=== PATIENT | female | born 1985 | race Caucasian/White ===

== ENCOUNTER 2022-09-06 11:13 | Emergency (ER) | payer MEDICAID, SELFPAY ==
--- NOTE | ~2022-09-06 | CT_ITS ---
EXAMINATION: CT HEAD WITHOUT CONTRAST (STROKE PROTOCOL) CLINICAL INFORMATION: Stroke protocol. 36-year-old with sudden right hemiplegia. COMPARISON: None TECHNIQUE: Contiguous axial imaging was performed from the skull base to vertex without intravenous administration of contrast. Axial images provided. This CT examination was performed using dose optimization techniques as appropriate, variously including the following: *Automated exposure control *Adjustment of mA and/or kV according to patient size (this includes techniques or standardized protocols for targeted exams where dose is matched to indication/reason for exam; i.e. extremities or head) *Use of iterative reconstruction technique DLP: 595 mGy-cm FINDINGS: There is no intracranial hemorrhage, hematoma, or extra-axial fluid collection. The ventricles are normal in size. There is no hydrocephalus, edema, or mass effect. The georges-white matter differentiation appears well preserved . No focal dense vessel sign appreciated. There is no visible acute territorial infarct or mass lesion. The calvarium appears intact. There is no pneumocephalus or orbital emphysema. The visualized sinuses and middle ears and mastoid air cells show no significant mucosal thickening. There are no air-fluid levels. CTA head and neck exam pending for further assessment. Results called to Dr. Mounika García in the emergency department at [address]/CT head for stroke IMPRESSION: -No acute intracranial abnormality demonstrated. -See CTA head and neck exam for further assessment, separate report.
--- NOTE | ~2022-09-06 | CT_ITS ---
EXAMINATION: CT ANGIOGRAM NECK WITH CONTRAST CT ANGIOGRAM BRAIN WITH CONTRAST CLINICAL INFORMATION: Stroke alert. COMPARISON: None. TECHNIQUE: Test bolus sequences followed by intravenous administration 100 mL of Omnipaque 350. Helical imaging was performed in the axial plane from the thoracic inlet to the skull vertex. Delayed postcontrast imaging of the head was also performed. The data was processed at the staff nuclear medicine technologist workstation for generation of MIP sequences. Angled MIPs and volume rendered reformatted images were also generated at an offline 3D workstation. Stenoses are assessed in accordance with NASCET criteria unless otherwise indicated. This CT examination was performed using dose optimization techniques as appropriate, variously including the following: *Automated exposure control *Adjustment of mA and/or kV according to patient size (this includes techniques or standardized protocols for targeted exams where dose is matched to indication/reason for exam; i.e. extremities or head) *Use of iterative reconstruction technique DLP: 1392 mGy-cm FINDINGS: Head CT: There is no intracranial hemorrhage, large acute infarction, or mass lesion. The ventricles are normal in size and configuration without evidence of hydrocephalus. No abnormal enhancement is seen. The dural venous sinuses are normally opacified. The visualized paranasal sinuses and mastoid air cells are clear. Head and neck CTA: The aortic arch and great vessel origins are patent. There is aberrant origin of the right subclavian artery which demonstrates a retroesophageal course. The aortic arch and great vessel origins are patent. The bilateral common carotid arteries are patent. No stenosis is seen at the carotid bifurcations. The left vertebral artery is normal in course and caliber. The V3 segment of the right vertebral artery demonstrates luminal irregularity with surrounding soft tissue attenuation compatible with dissection as demonstrated on series 6 image [id number]. The intradural segment of the right vertebral artery demonstrates poor opacification with diminutive caliber with only minimal contrast seen at the vertebrobasilar junction. The right-sided posterior inferior cerebellar artery is poorly opacified. The intradural left vertebral artery is normal in course and caliber and appears to predominantly supply the basilar artery. The printmaker are patent. The intracranial ICAs are patent. The ACAs and MCAs are patent with symmetric collaterals. No aneurysm is seen. Non-vascular findings: The cervical soft tissues are within normal limits. No consolidation is seen within the lungs. Degenerative changes are seen within the spine. CT/CT angio head neck stroke IMPRESSION: CT HEAD: No intracranial hemorrhage or large acute infarction. 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 The intradural right vertebral artery demonstrates poor opacification with diminutive caliber with only minimal contrast seen at the vertebrobasilar junction concerning with intradural extension. The left vertebral artery is patent including the intradural segment and supplies the basilar artery. Basilar artery appears patent. 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 This critical result was discussed with Dr. García on 09/06/2022 11:59 AM, and it was ascertained that the content and urgency of the report was understood at the time of direct communication.
--- NOTE | 2022-09-06 11:17 | ECG_ITS ---
Test Reason : STROKE Blood Pressure : / mmHG Vent. Rate : 089 BPM Atrial Rate : 088 BPM P-R Int : 140 ms QRS Dur : 084 ms QT Int : 378 ms P-R-T Axes : 070 071 058 degrees QTc Int : 459 ms Undetermined rhythm Otherwise normal ECG No previous ECGs available Referred By: Kelly Sanches Electronically Signed By:
[2022-09-06 11:25] VITALS: BP 114/86; PULSE 100; O2SAT 100
[2022-09-06 11:25] LABS: Glucose, Whole Blood 206 mg/dL (60-115)
[2022-09-06 11:26] VITALS: BMI 25.8
[2022-09-06 11:31] LABS: Prothrombin Time Whole Bld POC 12.6 sec (11.1-13.5); ~PT, ~INR - Anti Coag Clinic 1.1 (0.9-1.1)
--- NOTE | 2022-09-06 11:32 | ED_ITS ---
HPI - Neuro Symptoms/Deficit General Chief Complaint: Neuro Symptoms/Deficit Stated Complaint: STROKE ALERT,R WEAK,SLURRED,DROOP,BHAGAT,NUMB,LKWT UNK Source: patient Mode of arrival: EMS Limitations: altered mental status History of Present Illness HPI Narrative: 36 yo female with hx of ADHD not on blood thinners per EMS - they note they were called by an employer who saw the patient and called 911 stated the patient seemed off and speech was slurred. Patient was found down on the ground by EMS. Patient cannot give a reliable time of onset but noted that sometime this AM she started to feel off. When asked onset she jsut shakes her head yes or no and thinks sometime around 7 or 730 she started to have numbness in her arms and a headache. She cannot actually say the time due to dysarthria Onset (ago): unknown (sometime this AM but we cannot confirm the time) Timing confirmed by: other (employer via phone) Location: speech, right face, right arm, right leg and altered History of same: No Severity: severe Quality: weak Relieving factors: none Exacerbating factors: none Context: other (was on ground with EMS, started gradually we believe) On Anticoagulants: No Associated symptoms: headaches and nausea/vomiting Treatments Prior to Arrival: none Related Data Home Medications Medication Instructions Recorded Confirmed dextroamphetamine-amphetamine 15 15 mg PO BID 09/06/22 09/06/22 mg tablet (Adderall) Allergies Allergy/AdvReac Type Severity Reaction Status Date / Time No Known Allergies Allergy Verified 09/06/22 11:55 Review of Systems Review of Systems: ROS unable to be obtained due to altered mental status and patient's speech deficits [facility] Past Medical History Medical History ADHD Social History Social History (Updated 09/06/22 @ 11:47 by Stacia García DO) Alcohol intake: never Patient Tobacco Use Status: Never used Tobacco Use of substances other than those prescribed or required for medical reasons: Yes Substance Use Type: Marijuana Substance Use Frequency: Occasionally Last Used Substance: Weeks (ago) Any prior treatment program specific to substance use: No Advance Directives: No Advance Directives Information Provided: No Patient : No Physical Exam Vital Signs: Vital Signs: Last Vital Signs Pulse 72 09/06/22 12:00 Resp 20 09/06/22 12:00 BP 123/74 09/06/22 12:00 Pulse Ox 99 09/06/22 12:00 O2 Del Method 09/06/22 12:00 BMI result Body Mass Index 25.8 Appearance: Alert. Confused but answers to her name and attempts to answer questions but aphasic and dysarthric Moderate acute distress, vomited on arrival and cleared emesis into bag on her own Eyes: Pupils equal, round and reactive to light. ENT: Pharynx normal. Neck: Normal inspection. Neck supple. CVS: Normal heart rate and rhythm. Pulses normal. Respiratory: No respiratory distress. Breath sounds normal. Abdomen: Soft and nontender. Skin: Skin warm and dry. Normal skin color. Normal skin turgor. Extremities: No lower extremity edema. No calf ttp Neuro: Confused. Dense R sided hemiparesis, fixed gaze to the right, facial paralysis lower right, seems to neglect left side, dysarthria and aphasia. . Course Course Course Narrative: CT head: CT head plain negative no ICH 1134am CTA: pending results Dr. Lieberman recommends given symptoms to transfer to [facility] send to ED Dr. Arias needs perfusion scan 1139am accepting provider ED doctor - Dr. Mcnally accepted patient to the ED. EMS was called for transfer at this time by ammunition and explosives handler dense R vert artery dissection ? 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 The intradural right vertebral artery demonstrates poor opacification with diminutive caliber with only minimal contrast seen at the vertebrobasilar junction concerning with intradural extension. The left vertebral artery is patent including the intradural segment and supplies the basilar artery. Basilar artery appears patent. 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 MDM - Neuro Symptoms/Deficit MDM Narrative Medical decision making narrative: 36 yo female with dense R sided hemiparesis and dysarthria/aphasia without a reliable window for tPa - given NIH score and symptoms concern for LVO - she is not a candidate for tPa as I cannot confirm timing with her. She is more suitable for tertiary center with neurointerventionalist. Will consult [facility]. Transfer initiated. She is protecting her airway. Lab Data Result diagrams: 09/06/22 11:36 09/06/22 11:36 Labs: Lab Results 09/06/22 09/06/22 09/06/22 Range/Units 11:21 11:22 11:36 WBC 19.5 H (4.8-10.8) X10*3/uL RBC 3.93 L (4.20-5.50) X10*6/uL Hgb 12.6 (12.0-16.0) g/dl Hct 37.1 (37.0-47.0) % MCV 94.4 (80.0-98.0) fL MCH 32.1 (27.0-33.0) pg MCHC 34.0 (31.0-35.0) g/dl RDW 11.8 (11.0-16.0) % Plt Count 323 (160-400) X10*3/uL MPV 10.5 (9.4-12.3) fL Immature Gran % (Auto) 0.6 H (0.0-0.4) % Neut % (Auto) 87.7 H (45-73) % Lymph % (Auto) 7.8 L (20-40) % [place] % (Auto) 3.3 (2-11) % Eos % (Auto) 0.2 (0-4) % Baso % (Auto) 0.4 (0-2) % Lymph # (Auto) 1.5 (1.2-4.9) X10*3/uL [place] # (Auto) 0.6 (0.1-1.2) X10*3/uL Eos # (Auto) 0.0 (0.0-0.4) X10*3/uL Baso # (Auto) 0.1 (0.0-0.2) X10*3/uL Abs Immat Gran (auto) 0.12 H (0.00-0.03) X10*3/uL Absolute Neuts (auto) 17.1 H (2.0-8.3) x10*3/uL Absolute Nucleated RBC 0.000 (0.0-0.012) X10*3/uL Nucleated RBC % (auto) 0.0 (0.0-0.2) /100WBC PT (10.0-13.1) SEC Whole Blood PT 12.6 (11.1-13.5) sec INR (0.9-1.1) Whole Blood INR 1.1 (0.9-1.1) APTT (26.0-36.4) SEC Sodium (135-145) mmol/L Potassium (3.3-5.1) mmol/L Chloride (96-108) mmol/L Carbon Dioxide (22-29) mmol/L Anion Gap (12-20) BUN (9-16) mg/dL Creatinine (0.5-1.4) mg/dL Estim Creat Clear Calc Estimated GFR POC Glucose 206 H (60-115) mg/dL Random Glucose (60-115) mg/dL Calcium (8.4-10.2) mg/dL Magnesium (1.6-2.6) mg/dL Total Bilirubin (0.0-1.0) mg/dL AST (5-31) U/L ALT (0-31) U/L Alkaline Phosphatase (39-117) U/L Total Creatine Kinase (26-140) U/L Troponin I High Sens (<3.5-17.0) ng/L Total Protein (6.5-8.0) g/dL Albumin (3.5-5.0) g/dL COVID-19 (PAPA) (Negative) COVID-19 Clin Com 09/06/22 09/06/22 09/06/22 Range/Units 11:36 11:36 11:36 WBC (4.8-10.8) X10*3/uL RBC (4.20-5.50) X10*6/uL Hgb (12.0-16.0) g/dl Hct (37.0-47.0) % MCV (80.0-98.0) fL MCH (27.0-33.0) pg MCHC (31.0-35.0) g/dl RDW (11.0-16.0) % Plt Count (160-400) X10*3/uL MPV (9.4-12.3) fL Immature Gran % (Auto) (0.0-0.4) % Neut % (Auto) (45-73) % Lymph % (Auto) (20-40) % [place] % (Auto) (2-11) % Eos % (Auto) (0-4) % Baso % (Auto) (0-2) % Lymph # (Auto) (1.2-4.9) X10*3/uL [place] # (Auto) (0.1-1.2) X10*3/uL Eos # (Auto) (0.0-0.4) X10*3/uL Baso # (Auto) (0.0-0.2) X10*3/uL Abs Immat Gran (auto) (0.00-0.03) X10*3/uL Absolute Neuts (auto) (2.0-8.3) x10*3/uL Absolute Nucleated RBC (0.0-0.012) X10*3/uL Nucleated RBC % (auto) (0.0-0.2) /100WBC PT 14.0 H (10.0-13.1) SEC Whole Blood PT (11.1-13.5) sec INR 1.2 H (0.9-1.1) Whole Blood INR (0.9-1.1) APTT 24.1 L (26.0-36.4) SEC Sodium 137 (135-145) mmol/L Potassium 5.0 (3.3-5.1) mmol/L Chloride 107 (96-108) mmol/L Carbon Dioxide 15 L (22-29) mmol/L Anion Gap 20 (12-20) BUN 14 (9-16) mg/dL Creatinine 0.74 (0.5-1.4) mg/dL Estim Creat Clear Calc 105.1 Estimated GFR > 60 POC Glucose (60-115) mg/dL Random Glucose 206 H (60-115) mg/dL Calcium 8.6 (8.4-10.2) mg/dL Magnesium 1.8 (1.6-2.6) mg/dL Total Bilirubin 0.6 (0.0-1.0) mg/dL AST 15 (5-31) U/L ALT 13 (0-31) U/L Alkaline Phosphatase 74 (39-117) U/L Total Creatine Kinase 92 (26-140) U/L Troponin I High Sens < 3.5 (<3.5-17.0) ng/L Total Protein 5.8 L (6.5-8.0) g/dL Albumin 3.6 (3.5-5.0) g/dL COVID-19 (PAPA) (Negative) COVID-19 Clin Com 09/06/22 Range/Units 11:36 WBC (4.8-10.8) X10*3/uL RBC (4.20-5.50) X10*6/uL Hgb (12.0-16.0) g/dl Hct (37.0-47.0) % MCV (80.0-98.0) fL MCH (27.0-33.0) pg MCHC (31.0-35.0) g/dl RDW (11.0-16.0) % Plt Count (160-400) X10*3/uL MPV (9.4-12.3) fL Immature Gran % (Auto) (0.0-0.4) % Neut % (Auto) (45-73) % Lymph % (Auto) (20-40) % [place] % (Auto) (2-11) % Eos % (Auto) (0-4) % Baso % (Auto) (0-2) % Lymph # (Auto) (1.2-4.9) X10*3/uL [place] # (Auto) (0.1-1.2) X10*3/uL Eos # (Auto) (0.0-0.4) X10*3/uL Baso # (Auto) (0.0-0.2) X10*3/uL Abs Immat Gran (auto) (0.00-0.03) X10*3/uL Absolute Neuts (auto) (2.0-8.3) x10*3/uL Absolute Nucleated RBC (0.0-0.012) X10*3/uL Nucleated RBC % (auto) (0.0-0.2) /100WBC PT (10.0-13.1) SEC Whole Blood PT (11.1-13.5) sec INR (0.9-1.1) Whole Blood INR (0.9-1.1) APTT (26.0-36.4) SEC Sodium (135-145) mmol/L Potassium (3.3-5.1) mmol/L Chloride (96-108) mmol/L Carbon Dioxide (22-29) mmol/L Anion Gap (12-20) BUN (9-16) mg/dL Creatinine (0.5-1.4) mg/dL Estim Creat Clear Calc Estimated GFR POC Glucose (60-115) mg/dL Random Glucose (60-115) mg/dL Calcium (8.4-10.2) mg/dL Magnesium (1.6-2.6) mg/dL Total Bilirubin (0.0-1.0) mg/dL AST (5-31) U/L ALT (0-31) U/L Alkaline Phosphatase (39-117) U/L Total Creatine Kinase (26-140) U/L Troponin I High Sens (<3.5-17.0) ng/L Total Protein (6.5-8.0) g/dL Albumin (3.5-5.0) g/dL COVID-19 (PAPA) Negative (Negative) COVID-19 Clin Com See Note ECG Data Attestation: I personally reviewed and interpreted this ECG as follows: ECG interpretation date: 09/06/22 ECG interpretation time: 11:52 Interpretation: Rate: 89 Rhythm: NSR [place]: normal Normal P waves. Normal AXEL. Normal QRS complex. ST T wave : normal no ELOISE qTC: normal prior studies: no acute ischemi, artifact noted The study has been interpreted contemporaneously by me. . NIH Stroke Scale Internal: Initial- Upon Arrival Level of Consciousness: Alert Level of Consciousness Questions: Answers one question correctly Level of Consciousness Commands: Performs one task correctly Best Gaze: Partial gaze palsy Visual: No visual loss Facial Palsy: Minor paralyis Motor Arm (Right): No movement Motor Arm (Left): No drift Motor Leg (Right): No movement Motor Leg (Left): No drift Limb Ataxia: Absent Sensory: Normal Best Language: Mild to moderate aphasia Dysarthia: Mild to moderate dysarthria Extinction and Inattention: Visual, tactile, auditory, spatial, or personal inattention Score: 15 Critical Care Time Critical Care Time Critical Care Time: Yes Total Critical Care Time: 35 Attestation: medical consult, transfer to tertiary center I attest to this time spent taking care of the patient Discharge Plan Discharge Clinical Impression: Hemiparesis of right dominant side, Dysarthria, Dissection of vertebral artery Patient Disposition: [facility] Transfer Details: [facility] Prescriptions: No Action dextroamphetamine-amphetamine [Adderall] 15 mg Tablet 15 mg PO BID Rx Instructions: administer doses at least 4-6 hours apart Interventions: Acute Care Transfer Worksheet (ED) Last Done: 09/06/22 12:18 Discharge Date/Time: 09/06/22 12:22
--- NOTE | 2022-09-06 11:32 | PC.NURSE ---
@11:30AM CALL PLACED TO PT TX LINE @ [facility] @ ERIK RIVERA RN ENVIRONMENTAL TEST TECHNICIAN JEREMIE ANSWERS, TAKES PT IN AND THEN SPEAKS WITH ERIK RIVERA RN/ENVIRONMENTAL TEST TECHNICIAN
--- NOTE | 2022-09-06 11:37 | PC.NURSE ---
@ 11:37AM CALL RECEIVED FROM [facility] PT TX LINE JEREMIE ASKING TO SPEAK WITH DR LITTLEJOHN ON THIS PT WITH NEURO/VASC ON THE LINE DR LITTLEJOHN TAKES OVER THIS CALL RIGHT AWAY
[2022-09-06 11:41] LABS: MANUAL DIFF FLAG NO
[2022-09-06 11:43] LABS: Basophils Absolute Auto 0.1 X10*3/uL (0.0-0.2); Basophils Percent Auto 0.4 % (0-2); Eosinophils Percent Auto 0.2 % (0-4); Hematocrit 37.1 % (37.0-47.0); Hemoglobin 12.6 g/dl (12.0-16.0); Imm Gran Abs Auto 0.12 X10*3/uL (0.00-0.03); Imm Gran Pct Auto 0.6 % (0.0-0.4); Lymphocytes Absolute Auto 1.5 X10*3/uL (1.2-4.9); Lymphocytes Percent Auto 7.8 % (20-40); Mean Corpuscular Hemoglobin 32.1 pg (27.0-33.0); Mean Corpuscular Volume 94.4 fL (80.0-98.0); Mean Platelet Volume 10.5 fL (9.4-12.3); Monocytes Absolute Auto 0.6 X10*3/uL (0.1-1.2); Monocytes Percent Auto 3.3 % (2-11); Neutrophils Absolute Auto 17.1 x10*3/uL (2.0-8.3); Neutrophils Percent Auto 87.7 % (45-73); Platelet Count 323 X10*3/uL (160-400); Red Blood Count 3.93 X10*6/uL (4.20-5.50); Red Cell Distribution Width 11.8 % (11.0-16.0); White Blood Count 19.5 X10*3/uL (4.8-10.8)
[2022-09-06] MEDS: iohexoL 350 MG/ML 100 ML INFUS..BTL IV (11:44)
[2022-09-06 11:46] VITALS: BP 125/76; PULSE 82; RESP 16; O2SAT 100
[2022-09-06 11:55] LABS: INTERNATIONAL NORM RATIO 1.2 (0.9-1.1)
[2022-09-06 11:58] LABS: Partial Thromboplastin Time 24.1 SEC (26.0-36.4)
[2022-09-06 11:59] LABS: Alanine Aminotransferase 13 U/L (0-31); Albumin Level 3.6 g/dL (3.5-5.0); Alkaline Phosphatase 74 U/L (39-117); Anion Gap 20 (12-20); Aspartate Amino Transferase 15 U/L (5-31); Bilirubin Total 0.6 mg/dL (0.0-1.0); Blood Urea Nitrogen 14 mg/dL (9-16); COVID-19 Test Negative (Negative); Calcium 8.6 mg/dL (8.4-10.2); Carbon Dioxide 15 mmol/L (22-29); Chloride 107 mmol/L (96-108); Creatinine Clr Calc Pharmacy 105.1; Estimated Glomerular Filt Rate > 60; Glucose Random 206 mg/dL (60-115); Magnesium 1.8 mg/dL (1.6-2.6); Sodium 137 mmol/L (135-145); Total Protein 5.8 g/dL (6.5-8.0)
[2022-09-06 12:00] VITALS: BP 123/74; PULSE 72; RESP 20; O2SAT 99
[2022-09-06 12:05] LABS: Troponin-I High Sensitivity < 3.5 ng/L (<3.5-17.0)
--- NOTE | 2022-09-06 12:25 | MHC.STROKE ---
1108 [facility] ems pre-notified stroke alert, arrived 1113. provider met at door, examined, and direct to ct and cta h/n. right hemiparesis, out of the window for tpa ?lkw before 0730. Dr. Lieberman speaking with Dr. García, coordinating care to [facility]. cta with right vertreal artery dissection. [facility] accepted in transfer. npo, failed swallow. see Dr. García's note. EMS at [facility], departed for transfer at 1220.
--- NOTE | 2022-09-06 12:26 | PC.NURSE ---
[facility] Updated per patient request. Information regarding transfer provided.
== END 2022-09-06 12:22 | disposition short-term general hospital (02) ==
PROVIDERS: Nurse Practitioner Family; Emergency Provider Emergency Medicine
DX: G81.91 Hemiplegia, unspecified affecting right dominant side (principal); R47.1 Dysarthria and anarthria; R47.81 Slurred speech; R29.715 NIHSS score 15; Z20.822 Contact with and (suspected) exposure to COVID-19; Z79.899 Other long term (current) drug therapy
CPT/HCPCS: 70450; 70496; 70498; 80053; 82550; 82947; 83735; 84484; 85025; 85610; 85730; 87635; 93005; 99285; Q9967